=== PATIENT | male | born 1945 | race Caucasian/White ===

== ENCOUNTER → 2016-12-13 | Outpatient (CLI) | payer MEDICARE, BC ==
[~2016-12-13] MED LIST: ALPRAZOLAM0.5 MG PO; ARICEPT5 MG PO; CARDURA4 MG PO; CORDARONE 200M200 MG PO; COUMADIN 10MG T10 MG PO; COUMADIN4 MG PO; DEXILANT60 MG PO; DILTIAZEM 24HR180 MG PO; DITROPAN 5 MG TA5 MG PO; FINASTERIDE5 MG PO; GLYBURIDE-METF1 EAC1 PO; HYDROCODON-ACE1 EAC2 PO; HYGROTON TAB 2525 MG PO; LANTUS100 UNIT/1 SQ; LISINOPRIL40 MG PO; METOPROLOL TART50 MG PO; NITROSTAT 0.40.4 MG SL; PLAVIX 75 MG TA75 MG PO; PRAVASTATIN SOD20 MG PO; SOTALOL80 MG PO; SPIRONOLACTONE25 MG PO
== END ==
LOC: HEART 5 10:30
DX: R00.2 Palpitations (principal)

== ENCOUNTER → 2017-01-24 | Outpatient (CLI) | payer MEDICARE, BC | LOC: HEART 5 08:10 | DX: R07.9 Chest pain, unspecified (principal); R06.02 Shortness of breath; R94.39 Abnormal result of other cardiovascular function study | CPT/HCPCS: 78452; A9502; J2785 ==

== ENCOUNTER → 2017-02-06 | Outpatient (CLI) | payer MEDICARE, BC | LOC: RAD 15:27 | DX: R06.02 Shortness of breath (principal); J30.9 Allergic rhinitis, unspecified; I25.119 Atherosclerotic heart disease of native coronary artery with unspecified angina pectoris; E11.9 Type 2 diabetes mellitus without complications; F41.9 Anxiety disorder, unspecified; I51.7 Cardiomegaly | CPT/HCPCS: 71020; 94060; 94729 ==

== ENCOUNTER → 2017-03-06 | Outpatient (CLI) | payer MEDICARE, BC ==
[~2017-03-06] VITALS: Ht 162.6 cm; Wt 111.1 kg
[2017-03-06 08:21] LABS: HEMOGLOBIN 13.3 gm/dl (14.0-17.5); RED BLOOD COUNT 4.38 M/UL (4.20-5.50); WHITE BLOOD COUNT 10.9 K/UL (4.5-11.0)
[2017-03-06 08:36] LABS: BUN/CREATININE RATIO 25 (0-10)
== END ==
LOC: OPSV2 07:45
PROVIDERS: Internal Medicine Cardiovascular Disease
DX: I48.0 Paroxysmal atrial fibrillation (principal); I25.119 Atherosclerotic heart disease of native coronary artery with unspecified angina pectoris; I10 Essential (primary) hypertension; E78.5 Hyperlipidemia, unspecified; E11.9 Type 2 diabetes mellitus without complications; J30.9 Allergic rhinitis, unspecified; I48.92 Unspecified atrial flutter; G47.33 Obstructive sleep apnea (adult) (pediatric); F41.9 Anxiety disorder, unspecified; E66.9 Obesity, unspecified; Z87.891 Personal history of nicotine dependence; Z98.890 Other specified postprocedural states; Z79.01 Long term (current) use of anticoagulants; Z79.02 Long term (current) use of antithrombotics/antiplatelets; Z79.4 Long term (current) use of insulin; Z79.899 Other long term (current) drug therapy; Z68.41 Body mass index [BMI] 40.0-44.9, adult
CPT/HCPCS: 36415; 80048; 82962; 85027; 92960; 93005; J1200; J1742; J2250; J3010

== ENCOUNTER → 2020-10-05 | Outpatient (CLI) | payer MEDICARE, BC, OTHER ==
[~2020-10-05] MED LIST changes: +ASPIRIN CHEWABL81 MG PO; +COUMADIN10 MG PO; +DIABETA 5 MG TAB5 MG PO; +GLUCOPHAGE500 MG PO; +GLYBURIDE5 MG PO; +HYDROCHLOROTHIA25 MG PO; +ISOSORBIDE MONO60 MG PO; +LASIX40 MG PO; -LISINOPRIL40 MG PO; +PRINIVIL20 MG PO; +RELAFEN 750 MG750 MG PO; +ROXICODONE5 MG PO; +SYNTHROID25 MCG PO; +ZESTRIL 40 MG T40 MG PO; +ZYLOPRIM 100 M100 MG PO
== END ==
LOC: WCC 15:00
DX: T21.25XA Burn of second degree of buttock, initial encounter (principal); E11.628 Type 2 diabetes mellitus with other skin complications; E66.01 Morbid (severe) obesity due to excess calories; I10 Essential (primary) hypertension; E11.51 Type 2 diabetes mellitus with diabetic peripheral angiopathy without gangrene; I48.91 Unspecified atrial fibrillation; E11.22 Type 2 diabetes mellitus with diabetic chronic kidney disease; N18.2 Chronic kidney disease, stage 2 (mild); Z79.4 Long term (current) use of insulin; Z87.891 Personal history of nicotine dependence; Z95.5 Presence of coronary angioplasty implant and graft; Z68.38 Body mass index [BMI] 38.0-38.9, adult; Z86.16 Personal history of COVID-19
CPT/HCPCS: G0463

== ENCOUNTER → 2020-10-10 | Outpatient (CLI) | payer MEDICARE, BC, OTHER | LOC: WCC 11:15 | PROC: 0JB90ZZ Excision of Buttock Subcutaneous Tissue and Fascia, Open Approach (ICD-10-PCS; principal; 2020-10-10) | DX: T21.25XA Burn of second degree of buttock, initial encounter (principal); E11.52 Type 2 diabetes mellitus with diabetic peripheral angiopathy with gangrene; I96 Gangrene, not elsewhere classified; E11.628 Type 2 diabetes mellitus with other skin complications; E66.01 Morbid (severe) obesity due to excess calories; I49.9 Cardiac arrhythmia, unspecified; I12.0 Hypertensive chronic kidney disease with stage 5 chronic kidney disease or end stage renal disease; E11.22 Type 2 diabetes mellitus with diabetic chronic kidney disease; N18.6 End stage renal disease; M10.9 Gout, unspecified; M19.90 Unspecified osteoarthritis, unspecified site; E11.40 Type 2 diabetes mellitus with diabetic neuropathy, unspecified; F41.8 Other specified anxiety disorders; Z79.4 Long term (current) use of insulin; Z79.899 Other long term (current) drug therapy; Z68.38 Body mass index [BMI] 38.0-38.9, adult; Z79.2 Long term (current) use of antibiotics; X19.XXXA Contact with other heat and hot substances, initial encounter ==

== ENCOUNTER 2020-10-18 17:21 | Emergency (ER) | payer MEDICARE, BC, OTHER | END 2020-10-18 19:46 | disposition left against medical advice (07) | LOC: ER1 17:21 | DX: R07.81 Pleurodynia (principal); Z53.21 Procedure and treatment not carried out due to patient leaving prior to being seen by health care provider ==

== ENCOUNTER → 2020-10-19 | Outpatient (CLI) | payer MEDICARE, BC, OTHER | LOC: WCC 13:00 | PROC: 0JB90ZZ Excision of Buttock Subcutaneous Tissue and Fascia, Open Approach (ICD-10-PCS; principal; 2020-10-19) | DX: T21.25XA Burn of second degree of buttock, initial encounter (principal); I96 Gangrene, not elsewhere classified; E11.40 Type 2 diabetes mellitus with diabetic neuropathy, unspecified; I12.0 Hypertensive chronic kidney disease with stage 5 chronic kidney disease or end stage renal disease; E11.22 Type 2 diabetes mellitus with diabetic chronic kidney disease; N18.6 End stage renal disease; M10.9 Gout, unspecified; E66.01 Morbid (severe) obesity due to excess calories; E11.52 Type 2 diabetes mellitus with diabetic peripheral angiopathy with gangrene; I49.9 Cardiac arrhythmia, unspecified; M19.90 Unspecified osteoarthritis, unspecified site; F41.8 Other specified anxiety disorders; Z68.38 Body mass index [BMI] 38.0-38.9, adult; Z79.2 Long term (current) use of antibiotics; Z79.899 Other long term (current) drug therapy; Z79.4 Long term (current) use of insulin; X16.XXXA Contact with hot heating appliances, radiators and pipes, initial encounter ==

== ENCOUNTER → 2020-10-26 | Outpatient (CLI) | payer MEDICARE, BC, OTHER | LOC: WCC 13:30 | PROC: 0JB90ZZ Excision of Buttock Subcutaneous Tissue and Fascia, Open Approach (ICD-10-PCS; principal; 2020-10-26) | DX: T21.25XA Burn of second degree of buttock, initial encounter (principal); E11.52 Type 2 diabetes mellitus with diabetic peripheral angiopathy with gangrene; I96 Gangrene, not elsewhere classified; E11.628 Type 2 diabetes mellitus with other skin complications; I12.0 Hypertensive chronic kidney disease with stage 5 chronic kidney disease or end stage renal disease; E11.22 Type 2 diabetes mellitus with diabetic chronic kidney disease; N18.6 End stage renal disease; I49.9 Cardiac arrhythmia, unspecified; E11.40 Type 2 diabetes mellitus with diabetic neuropathy, unspecified; F41.8 Other specified anxiety disorders; M10.9 Gout, unspecified; M19.90 Unspecified osteoarthritis, unspecified site; E66.01 Morbid (severe) obesity due to excess calories; Z68.38 Body mass index [BMI] 38.0-38.9, adult; Z79.2 Long term (current) use of antibiotics; Z79.891 Long term (current) use of opiate analgesic; Z79.4 Long term (current) use of insulin; Z79.899 Other long term (current) drug therapy; X16.XXXA Contact with hot heating appliances, radiators and pipes, initial encounter ==

== ENCOUNTER → 2020-11-01 | Outpatient (CLI) | payer MEDICARE, BC, OTHER | LOC: WCC 13:26 | PROC: 0JB90ZZ Excision of Buttock Subcutaneous Tissue and Fascia, Open Approach (ICD-10-PCS; principal; 2020-11-01) | DX: T21.25XA Burn of second degree of buttock, initial encounter (principal); X08.8XXA Exposure to other specified smoke, fire and flames, initial encounter; E11.628 Type 2 diabetes mellitus with other skin complications; E66.01 Morbid (severe) obesity due to excess calories; I73.9 Peripheral vascular disease, unspecified; Z79.4 Long term (current) use of insulin; I12.9 Hypertensive chronic kidney disease with stage 1 through stage 4 chronic kidney disease, or unspecified chronic kidney disease; N18.2 Chronic kidney disease, stage 2 (mild); E11.22 Type 2 diabetes mellitus with diabetic chronic kidney disease ==

== ENCOUNTER → 2020-11-16 | Outpatient (CLI) | payer MEDICARE, BC, OTHER | LOC: WCC 13:30 | DX: E11.628 Type 2 diabetes mellitus with other skin complications (principal); T21.25XA Burn of second degree of buttock, initial encounter; E11.22 Type 2 diabetes mellitus with diabetic chronic kidney disease; I12.9 Hypertensive chronic kidney disease with stage 1 through stage 4 chronic kidney disease, or unspecified chronic kidney disease; N18.2 Chronic kidney disease, stage 2 (mild); E66.01 Morbid (severe) obesity due to excess calories; I73.9 Peripheral vascular disease, unspecified; Z79.4 Long term (current) use of insulin | CPT/HCPCS: G0463 ==

== ENCOUNTER → 2020-12-29 | Outpatient (CLI) | payer MEDICARE, BC | LOC: HEART 5 08:45 | DX: I20.9 Angina pectoris, unspecified (principal); I25.9 Chronic ischemic heart disease, unspecified | CPT/HCPCS: 78452; A9502; J2785 ==

== ENCOUNTER → 2021-01-13 | Outpatient (CLI) | payer MEDICARE, BC | LOC: ECHO 10:40 | DX: I25.10 Atherosclerotic heart disease of native coronary artery without angina pectoris (principal); I51.7 Cardiomegaly; I50.31 Acute diastolic (congestive) heart failure; I07.1 Rheumatic tricuspid insufficiency; I27.22 Pulmonary hypertension due to left heart disease | CPT/HCPCS: ECHO; 93306; 94010; 94729 ==

== ENCOUNTER → 2021-01-13 | Outpatient (CLI) | payer MEDICARE, BC | LOC: HEART 5 09:40 | DX: R06.02 Shortness of breath (principal); Z79.899 Other long term (current) drug therapy | CPT/HCPCS: 94010; 94729 ==